=== PATIENT | male | born 1980 | race Caucasian/White ===

== ENCOUNTER 2020-01-27 17:24 | Outpatient (CLI) | payer BC, SELFPAY ==
--- NOTE | ~2020-01-27 | US_ITS ---
EXAMINATION: US venous doppler [facility] EXAM DATE: 01/27/2020 17:53 INDICATION: Left leg pain. TECHNIQUE: Multiple grayscale, color flow and Doppler images of the left lower extremity deep venous system were obtained and reviewed. There is no prior study for comparison. FINDINGS: The left common femoral, femoral and profunda veins demonstrate normal color flow, respirat ory variation, augmentation and compressibility. Compressibility, color flow confirmed within the le ft popliteal, posterior tibial, peroneal, and greater saphenous veins. IMPRESSION: 1. No left lower extremity deep venous thrombosis. Reviewed, dictated and finalized at location A.
== END 2020-01-27 17:25 | disposition home or self-care (01) ==
PROVIDERS: PCP Nurse Practitioner Family; Visit Provider Nurse Practitioner Family
DX: M79.605 Pain in left leg (principal)
CPT/HCPCS: 93971

== ENCOUNTER 2021-05-01 10:33 | Emergency (ER) | payer BC, SELFPAY ==
[2021-05-01 11:01] VITALS: BP 118/79; PULSE 95; RESP 16; TEMP 36.2; O2SAT 98
--- NOTE | 2021-05-01 11:02 | ED.URI ---
HPI - URI/Sore Throat General Chief Complaint: Upper Respiratory Infection Stated Complaint: sorethroat/white patches in throat,cough Time Seen by Provider: 05/01/21 11:04 Source: patient, RN notes reviewed and old records reviewed Mode of arrival: ambulatory Limitations: no limitations History of Present Illness HPI Narrative: 40-year-old male who presents to [facility] care with complaints of sore throat with congestion since . Patient stats that he has had COVID vaccinations but no Booster, has not had any flu vaccination.Patient reports that he has been taking Mucinex, DayQuil and NyQuil and using cough drops for his symptoms. Patient reports that he is feeling better today than yesterday, Patient denies any present fevers chills or body aches, denies any shortness of breath at rest or with activity. MD elicited complaint: cough, sore throat and nasal congestion Onset (ago): day(s) (4) Related Data Home Medications Medication Instructions Recorded Confirmed fluticasone propionate 50 mcg INTRANASAL DAILY 05/01/21 05/01/21 lisinopril 10 mg PO DAILY 05/01/21 05/01/21 montelukast 10 mg PO DAILY 05/01/21 05/01/21 omeprazole 40 mg PO DAILY 05/01/21 05/01/21 sertraline 50 mg PO DAILY 05/01/21 05/01/21 Allergies Allergy/AdvReac Type Severity Reaction Status Date / Time AMANTADINE HCL Allergy Intermediate RASH Uncoded 02/06/18 07:35 Review of Systems Review of Systems: CONSTITUTIONAL: reports intermittent fever, chills, or sweats. EYES: Denies visual changes, redness, or discharge. ENT: Positive for rhinorrhea, congestion, sore throat, no otalgia. CARDIOVASCULAR: Denies chest pain, palpitations, or edema. RESPIRATORY: Positive for cough denies dyspnea. GASTROINTESTINAL: Denies abdominal pain, nausea, vomiting, or diarrhea. GENITOURINARY: Denies dysuria or hematuria. SKIN: Denies rash or itching. MUSCULOSKELETAL: Denies back pain, joint pain, some bodyaches NEUROLOGIC: Denies headache, numbness, or weakness. PSYCHIATRIC: Positive for history of anxiety or depression. All systems reviewed & are unremarkable except as noted in HPI and below PMFSH Past Medical History Medical History (Updated 05/01/21 @ 11:33 by Maryanne Barreto NP) Anxiety and depression GERD (gastroesophageal reflux disease) Hypertension Surgical History Surgical History (Updated 05/01/21 @ 11:31 by Maryanne Barreto NP) No history of previous surgery Family History Family History (Updated 05/01/21 @ 14:16 by Maryanne Barreto NP) Other No significant family history Social History Social History (Updated 05/01/21 @ 11:32 by Maryanne Barreto NP) Smoking status: Former smoker Alcohol intake: current Alcohol use details: rare social Substance use: never Living arrangements: with family Gender identity (if verbalized by the patient): Male Comments At time of signature, agree with nursing past medical, surgical, social and family history. There is no relevant family history pertinent to the presenting complaint Exam Narrative: GENERAL: Well-appearing, well-nourished, and in no acute distress. HEAD: Normocephalic, atraumatic. EYES: PERRLA and EOMI. ENT: Nares red with clear nasal rhinorrhea no epistaxis. Mucous membranes moist. TM's normal with good light reflex, throat red with no lesions or exudates some tonsil redness noted NECK: Supple. no lymphadenopathy CHEST: Clear to auscultation. No respiratory distress.SAO2 98% on room air. cough noted with SAO2 98% on room air HEART: Regular rate and rhythm. No murmur heard. Normal peripheral pulses. ABDOMEN: Soft, nontender, nondistended, normal active bowel sounds. EXTREMITIES: Normal range of motion. No edema. SKIN: Warm, dry, no rash. NEURO: No focal deficits. Alert and oriented x3. Course Course Level of Care: Express Care Visit Vital Signs Vital signs: Vital Signs Temperature 36.2 C L 05/01/21 11:01 Pulse Rate 95 05/01/21 11:01 Respiratory Rate 16 0
== END 2021-05-01 11:42 | disposition home or self-care (01) ==
PROVIDERS: Emergency Provider Registered Nurse; PCP Nurse Practitioner Family
DX: U07.1 COVID-19 (principal); K21.9 Gastro-esophageal reflux disease without esophagitis; I10 Essential (primary) hypertension; F41.9 Anxiety disorder, unspecified; F32.9 Major depressive disorder, single episode, unspecified
CPT/HCPCS: 87081; 87426; 87880; 99213; C9803; G0463

== ENCOUNTER 2021-12-17 20:13 | Observation (INO) | payer BC, SELFPAY ==
[2021-12-17] VITALS (17 sets, daily range): BP systolic 123–140; BP diastolic 67–97; PULSE 66–79; RESP 12–20; TEMP 36.6–36.9; O2SAT 95–100; BMI 37.3
--- NOTE | ~2021-12-17 | XR_ITS ---
EXAMINATION: XR chest 2V Exam Date/Time: 12/17/2021 20:50 CDT HISTORY: CP Comparison: None available. RESULT: Lines, tubes, and devices: None. Lungs and pleura: Clear. Cardiomediastinal silhouette: Unremarkable. Other: No acute osseous or upper abdominal finding. IMPRESSION: No acute cardiopulmonary process. Reviewed, dictated and finalized at location K.
--- NOTE | 2021-12-17 20:14 | ECG_ITS ---
Measurements Intervals [place] Rate: 74 P: 51 FL: 183 QRS: 16 QRSD: 97 T: 50 QT: 336 QTc: 374 Interpretive Statements SINUS RHYTHM INCOMPLETE RIGHT BUNDLE BRANCH BLOCK BASELINE WANDER- AVL, AVF, V1 BORDERLINE ECG NO PREVIOUS ECG AVAILABLE FOR COMPARISON Electronically Signed On 12-18-2021 8:26:08 CDT by Ajay Brandon D.O.
--- NOTE | 2021-12-17 21:19 | ED.CHESTPAIN ---
HPI - Chest Pain General Chief Complaint: Chest Pain Stated Complaint: chest pain Time Seen by Provider: 12/17/21 21:05 Source: patient Mode of arrival: ambulatory Limitations: no limitations History of Present Illness HPI narrative: Patient complaining of chest pain, intermittent over the last 7 days, central, tightness, he denies any aggravating or relieving factors. Pain started again this morning and has been more frequent more intense all day long than in the last 7 days. Today patient noticed that the pain going to his left upper extremity and neck and jaw. History of hypertension, obesity, father had a heart attack at age 45. Patient does not smoke or drink or uses drugs. Positive sedentary life. This morning the pain was 8 out of 10, currently 3 out of 10. Patient is not on any antiplatelet medication. MD complaint: chest pain Onset (ago): week(s) (1 week) Timing of current episode: episodic and increasing Pain location: substernal Pain radiation: left arm, neck and jaw/teeth Severity: severe Quality: tightness Relieving factors: nothing Exacerbating factors: nothing Risk Factors Coronary artery disease risk factors: hypertension and family history of CAD before age 50 Related Data Home Medications Medication Instructions Recorded Confirmed fluticasone propionate 50 50 mcg intranasal DAILY 05/01/21 12/18/21 mcg/actuation nasal spray,suspension lisinopril 10 mg tablet 10 mg PO DAILY 05/01/21 12/18/21 montelukast 10 mg tablet 10 mg PO DAILY 05/01/21 12/18/21 omeprazole 40 mg capsule,delayed 40 mg PO DAILY 05/01/21 12/18/21 release sertraline 50 mg tablet 100 mg PO DAILY 05/01/21 12/18/21 multivit,Ca,min-iron 8 mg-folic 1 tablet PO DAILY 12/18/21 12/18/21 acid 200 mcg-lycopene 600 mcg tablet (Centrum Men) penicillin V potassium 500 mg 500 mg PO Q6H 12/18/21 12/18/21 tablet Allergies Allergy/AdvReac Type Severity Reaction Status Date / Time AMANTADINE HCL Allergy Intermediate RASH Uncoded 12/17/21 21:20 Review of Systems Review of Systems: All systems reviewed & are unremarkable except as noted in HPI and below PMFSH Past Medical History Medical History Anxiety and depression GERD (gastroesophageal reflux disease) Hypertension Surgical History Surgical History No history of previous surgery Family History Family History Other No significant family history Social History Social History Smoking status: Former smoker Alcohol intake: never Alcohol use details: rare social Substance use: never Gender identity (if verbalized by the patient): Male Spiritual care concerns: Yes Exam Narrative: General appearance: Well-developed, well-nourished Skin: Normal color Head: Normocephalic, nontraumatic Eyes: Clear conjunctiva ENT: Oropharynx normal, ears normal, nose normal Neck: Supple, nontender Chest and respiratory: Airway patent, no respiratory distress, no accessory muscle use Heart: Regular rate/rhythm Abdomen: Soft, nontender, no organomegaly, quiet bowel sounds Vascular: Normal peripheral pulses, normal capillary refill. Musculoskeletal: Normal range of motion, nontender back Neurologic: Alert and oriented ?3, [employer] is normal as tested, no gross motor deficit Course Course Emergency Course: Chest tightness was a 3 out of 10 on arrival to the ED, resolved to 0 out of 10 afteR oral aspirin, Nitropaste 1 inch, Lopressor 25 mg orally.. Unstable angina is my concern, cardiac score is
[2021-12-17 21:22] LABS: Basophils Percent Auto 0.6 % (0.2-1.2); Eosinophils Absolute Auto 0.2 K/mm3 (0-0.3); Eosinophils Percent Auto 3.5 % (0-4.4); Hematocrit 42.2 % (42.0-52.0); Hemoglobin 14.7 g/dL (14.0-18.0); Immature Granulocyte Absolute 0.02 K/mm3 (0.00-0.031); Immature Granulocyte Percent A 0.3 % (0-0.5); Lymphocytes Absolute Auto 2.91 K/mm3 (0.9-3.2); Lymphocytes Percent Auto 42.9 % (18.3-44.2); Mean Corpuscular HGB Conc 34.8 g/dl (32-36); Mean Corpuscular Hemoglobin 32.3 pg (26-34); Mean Corpuscular Volume 92.7 fl (80-100); Mean Platelet Volume 9.3 fl (7.4-10.4); Monocytes Absolute Auto 0.7 K/mm3 (0.1-0.6); Monocytes Percent Auto 10.2 % (2.6-8.5); Neutrophils Absolute Auto 2.9 K/mm3 (1.3-6.7); Neutrophils Percent Auto 42.5 % (45.5-73.1); Platelet Count Result 210 k/mm3 (150-375); Red Blood Count 4.55 M/mm3 (4.6-6.20); Red Cell Distribution Width 11.7 % (11.5-14.5); White Blood Count 6.8 K/mm3 (4.5-10.0)
[2021-12-17] MEDS: NITROGLYCERIN OINTMENT 1 INCH DOSE TRANSDERM (21:30)
[2021-12-17] MEDS: ASPIRIN 81 MG CHEWABLE TABLET 324 MG PO (21:30)
[2021-12-17] MEDS: METOPROLOL TARTRATE 50 MG TAB 25 MG PO (21:31)
[2021-12-17 21:33] LABS: INR 0.9
[2021-12-17 21:36] LABS: Alanine Aminotransferase 29 U/L (6-50); Albumin Level 4.2 g/dL (3.5-5.1); Alkaline Phosphatase 101 U/L (38-126); Anion Gap 14 mmol/L (8-16); Aspartate Amino Transferase 30 U/L (17-59); Bilirubin,Total 0.4 mg/dL (0.2-1.3); Blood Urea Nitrogen 30 mg/dL (9-20); Calcium 8.6 mg/dL (8.4-10.2); Carbon Dioxide 23 mmol/L (22-30); Chloride 102 mmol/L (98-107); Estimated CRCL calculation 129 ml/min; Estimated Glomerular Filt Rate > 60; Glucose 98 mg/dL (65-110); Lipase 238 U/L (23-300); Potassium 3.9 mmol/L (3.4-5.0); Sodium 139 mmol/L (137-145)
[2021-12-17 21:47] LABS: Troponin I < 0.012 ng/mL (0.000-0.034)
[2021-12-17] MEDS: ENOXAPARIN 100 MG/ML SYRINGE SUB-Q (22:10)
[2021-12-17] MEDS: ENOXAPARIN 30 MG/0.3 ML SYRINGE SUB-Q (22:10)
--- NOTE | 2021-12-17 23:43 | ADMGEN ---
This patient, Augustus Muro, was admitted to IMU Room [id number]. Patient/family oriented to hospital policies and general routines including ID bracelet, bed and alarms, visiting hours, pain management, procedures, bathroom and other care routines, personal items, smoking policy, room service/diet, and visiting hours. Information on how to activate the Rapid Response Team has been discussed. Patient/Family are encouraged to report perceived risks to care and to ask questions if they do not understand what they are told or what they should do.
[2021-12-18] VITALS (9 sets, daily range): BP systolic 100–121; BP diastolic 61–67; PULSE 60–80; RESP 14–20; TEMP 36.7–36.9; O2SAT 97–100
[2021-12-18 01:00] LABS: Troponin I < 0.012 ng/mL (0.000-0.034)
[2021-12-18] MEDS: HYDROcodone/acetaminophen (*CRX) 5-325 MG TABLET 1 TAB PO (02:12)
[2021-12-18 03:46] LABS: Troponin I < 0.012 ng/mL (0.000-0.034)
[2021-12-18] MEDS: ACETAMINOPHEN 325 MG TABLET 650 MG PO ×2 (08:22→12:57)
--- NOTE | 2021-12-18 10:48 | PM.CNCAR ---
Assessment and Plan Assessment and plan (1) Chest pain: Code(s): R07.9 - Chest pain, unspecified Status: Acute Plan This is a 41-year-old man without any previous cardiac history he does have hypertension treated with lisinopril. He enters the hospital with a 7-10 day history of episodes of palpitations that when they occur long enough seem to be associated with some central chest discomfort as well. None of this is occurring in exertional fashion. His electrocardiograms look benign and his troponin levels rule out any evidence of acute coronary syndrome. In my opinion he can be discharged for outpatient workup. I plan to have my office reach out to him for a Holter monitor and an echocardiogram after which I will see him in the office for further evaluation and follow-up. If you have any questions regarding this opinion or case please let me know and thank you for consulting me to see him. Mustapha Trejo MD [facility] History of Present Illness History of Present Illness Consult date/time: 12/18/21 10:48 Consult reason: chest pain Reason For Visit: Unstable Angina Narrative: This is a 41-year-old man I am seeing at the request of the hospitalist after he was admitted from the emergency room last evening. He is unknown to me prior to this encounter. The patient is not known to have any cardiac problems before this. He has been having symptoms for the last week to 10 days were he describes episodes where he will suddenly feel his heart beating rapidly and forcefully. These episodes typically last 10-15 minutes and then subside. They are not associated with exertion. Some of the episodes are associated with a sense of some pain in his chest. Yesterday he had an episode that was more problematic it lasted longer and was associated with pain in the chest that radiated up into the neck so he came to the emergency room for evaluation. The symptoms have some resolving by the time he got here. In the emergency room he had 2 electrocardiograms done which were normal. He is troponin levels were negative. He was admitted with the diagnosis of unstable angina. Once again none of these symptoms are occurring in an exertional fashion. He denies any symptoms of orthopnea PND or edema he has never had a syncopal episode. He has a history of hypertension for which he takes lisinopril no history of dyslipidemia or diabetes. He considers himself to be generally in reasonably good health and really has not had any significant medical problems or serious hospitalizations in the past. 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 He is a lifelong nonsmoker. Review of Systems Constitutional: Constitutional: Reports no additional constitutional complaints Eyes: Eyes: Reports no additional eye complaints ENT: Reports system reviewed and no additional complaints, except as documented Cardiovascular: Cardiovascular: Reports as per HPI and Reports palpitations Respiratory: Respiratory: Reports no additional respiratory complaints Gastrointestinal: Gastrointestinal: Reports no additional gastrointestinal complaints Musculoskeletal: Musculoskeletal: Reports no additional musculoskeletal complaints Integumentary/Breasts: Skin/Breast: Reports system reviewed and no additional complaints, except as docu Neurologic: Reports system reviewed and no additional complaints, except as documented Endocrine: Endocrine: Reports no additional endocrine complaints Hematologic/Lymphatic: Hematologic/Lymphatic: Reports no additional hematologic/lymphatic complaints Allergic/Immunologic: Allergic/Immunologic: Reports no additional allergic/immunologic complaints PMFSH Past Medical History Medical History Anxiety and depression GERD (gastroesophageal reflux disease) Hypertension Surgical History Surgical History No history of previous surgery Family H
[2021-12-18] MEDS: MONTELUKAST SODIUM 10 MG TABLET PO (11:12)
[2021-12-18] MEDS: SERTRALINE HCL 50 MG TABLET 100 MG PO (11:12)
[2021-12-18] MEDS: THERAPEUTIC MULTIVITAMINS/MINERALS TAB (*BKC) 1 TABLET PO (11:13)
[2021-12-18] MEDS: lisinopriL 10 MG TABLET PO (11:14)
[2021-12-18] MEDS: FLUTICASONE PROPIONATE 0.05% NA SPR 16 GM BTL (*BKC) 1 SPRAY NASAL (11:15)
--- NOTE | 2021-12-18 12:43 | PM.SD2 ---
Same Day Admit/Disch: HPI History of Present Illness Chief complaint: Unstable Angina Narrative: Augustus Muro is a 41 year old male with past medical history significant for hypertension is presenting with chest pain. Patient states that he has had intermittent chest pain that starts in the center of his chest and radiates into his left arm and left jaw every once in a while over the last month. The last episode felt especially severe and made him uncomfortable. He denied any associated shortness of breath, nausea, vomiting or diarrhea. No fevers or chills. Of note, he is currently being treated for dental caries on the left side with penicillin. [facility] Past Medical History Medical History Anxiety and depression GERD (gastroesophageal reflux disease) Hypertension Surgical History Surgical History No history of previous surgery Family History Family History Other No significant family history Social History Social History Smoking status: Former smoker Alcohol intake: never Alcohol use details: rare social Substance use: never Gender identity (if verbalized by the patient): Male Spiritual care concerns: Yes Same Day Admit/Disch: Med Pre-admit Medications Home Medications Medication Instructions Recorded Confirmed Type fluticasone propionate 50 50 mcg intranasal DAILY 05/01/21 12/18/21 History mcg/actuation nasal spray,suspension lisinopril 10 mg tablet 10 mg PO DAILY 05/01/21 12/18/21 History montelukast 10 mg tablet 10 mg PO DAILY 05/01/21 12/18/21 History omeprazole 40 mg capsule,delayed 40 mg PO DAILY 05/01/21 12/18/21 History release sertraline 50 mg tablet 100 mg PO DAILY 05/01/21 12/18/21 History multivit,Ca,min-iron 8 mg-folic 1 tablet PO DAILY 12/18/21 12/18/21 History acid 200 mcg-lycopene 600 mcg tablet (Centrum Men) penicillin V potassium 500 mg 500 mg PO Q6H 12/18/21 12/18/21 History tablet Exam Narrative: General: No acute distress, alert and oriented per baseline HEENT: Atraumatic, normocephalic, mucous membranes moist CV: Regular rate and rhythm, S1, S2 Lungs: Clear to auscultation bilaterally, no rales or crackles noted, no wheezes, good air entry Abdomen: Soft, nontender, nondistended Extremities: Normal to inspection Skin: No rashes noted, no lesions or wounds seen Psych: Euthymic, normal affect DS: Data Data Completed and Pending Labs on day of discharge: Labs from last 24 hours 12/18/21 12/18/21 12/17/21 03:09 00:21 21:17 WBC RBC Hgb Hct MCV MCH MCHC RDW Plt Count MPV Immature Gran % (Auto) Neut % (Auto) Lymph % (Auto) [place] % (Auto) Eos % (Auto) Baso % (Auto) Lymph # (Auto) [place] # (Auto) Eos # (Auto) Baso # (Auto) Abs Immat Gran (auto) Absolute Neuts (auto) Absolute Nucleated RBC Nucleated RBC % PT INR APTT Sodium 139 Potassium 3.9 Chloride 102 Carbon Dioxide 23 Anion Gap 14 BUN 30 H Creatinine 0.90 Estim Creat Clear Calc 129 Estimated GFR > 60 Glucose 98 Calcium 8.6 Total Bilirubin 0.4 AST 30 ALT 29 Alkaline Phosphatase 101 Troponin I < 0.012 < 0.012 < 0.012 Total Protein 8.0 Albumin 4.2 Lipase 238 12/17/21 12/17/21 21:17 21:17 WBC 6.8 RBC 4.55 L Hgb 14.7 Hct 42.2 MCV 92.7 MCH 32.3 MCHC 34.8 RDW 11.7 Plt Count 210 MPV 9.3 Immature Gran % (Auto) 0.3 Neut % (Auto) 42.5 L Lymph % (Auto) 42.9 [place] % (Auto) 10.2 H Eos % (Auto) 3.5 Baso % (Auto) 0.6 Lymph # (Auto) 2.91 [place] # (Auto) 0.7 H Eos # (Auto) 0.2 Baso # (Auto) 0.0 Abs Immat Gran (auto) 0.02 Absolute Neuts (auto) 2.9 Absolute Nuclea
[2021-12-18] MEDS: PANTOPRAZOLE 40 MG TABLET PO (13:14)
[2021-12-18] MEDS: PENICILLIN V POTASSIUM 250 MG TABLET 500 MG PO (13:14)
== END 2021-12-18 14:30 | disposition home or self-care (01) ==
LOC: ANHED 21:54 → ANHIMU 23:29
PROVIDERS: Emergency Medicine; Admitting Provider Internal Medicine; Emergency Provider Emergency Medicine; PCP Nurse Practitioner Family; Visit Provider Student in an Organized Health Care Education/Training Program
DX: R07.9 Chest pain, unspecified (principal); I10 Essential (primary) hypertension; R00.2 Palpitations; K02.9 Dental caries, unspecified; E66.9 Obesity, unspecified; Z68.37 Body mass index [BMI] 37.0-37.9, adult; Z72.3 Lack of physical exercise; I45.10 Unspecified right bundle-branch block; F41.9 Anxiety disorder, unspecified; F32.A Depression, unspecified; K21.9 Gastro-esophageal reflux disease without esophagitis; Z87.891 Personal history of nicotine dependence; Z79.51 Long term (current) use of inhaled steroids; Z79.899 Other long term (current) drug therapy
CPT/HCPCS: 36415; 71046; 80053; 83690; 84484; 85025; 85610; 85730; 93005; 96372; 99285; A9270; G0378; J1650